=== PATIENT | male | born 1995 | race Caucasian/White ===

== ENCOUNTER → 2018-06-24 | Outpatient (CLI) | payer BC ==
[~2018-06-24] MED LIST: AZIT-21 PO; FEXO180T PO; IBUP200C92 PO; PRD10T PO; PRD20T PO; RT-ALBUINH IH; RT-ALBUTEROL SULF 2.5 MG/3 ML PRE-MIX VIAL INH ONE; RT-FLOV110 INH
== END ==
LOC: RT 14:20
PROVIDERS: ATTEND Nurse Practitioner Family
DX: J45.909 Unspecified asthma, uncomplicated (principal)
CPT/HCPCS: 94060; 94726; 94729